=== PATIENT | female | born 1985 | race Caucasian/White ===

== ENCOUNTER 2022-01-03 03:06 | Observation (INO) | payer MEDICAID ==
[~2022-01-03] VITALS: Ht 157.5 cm; Wt 77.1 kg
[2022-01-03] MEDS ORDERED: PREN1TAB78 PO (03:54)
[2022-01-03] MEDS ORDERED: LACTATED RINGERS 1,000 ML IV SCH (04:00)
[2022-01-03] MEDS ORDERED: LACTATED RINGERS 1,000 ML IV ONE (04:00)
[2022-01-03 04:12] LABS: CLARITY URINE CLEAR (CLEAR); COLOR URINE YELLOW (YELLOW); KETONES URINE NEGATIVE (NEGATIVE); LEUKOCYTE ESTERASE URINE 2+ (NEGATIVE); NITRITE URINE POSITIVE (NEGATIVE); OCCULT BLOOD URINE 2+ (NEGATIVE); PH URINE 6.5 (4.5-8.0); PROTEIN URINE 2+ (NEGATIVE); SPECIFIC GRAVITY URINE 1.008 (1.005-1.030); UROBILINOGEN URINE 0.2 E.U./dL (0.2-1.0)
[2022-01-03] MEDS ORDERED: CEFAZOLIN 2,000 MG in DEXT 5% WATER 100 ML IV NR (05:00)
[2022-01-03] MEDS: TERBUTALINE SULFATE 1MG/ML VIAL SUBCUT PRN ×2 (05:29→05:49)
[2022-01-03] MEDS ORDERED: NITR-87 MT (06:56)
== END 2022-01-03 07:00 | disposition home or self-care (01) ==
LOC: 8 EST LDRP 03:06
PROVIDERS: ADMIT Specialist; ATTEND Specialist
DX: O26.893 Other specified pregnancy related conditions, third trimester (principal); R10.30 Lower abdominal pain, unspecified; R30.0 Dysuria; Z3A.27 27 weeks gestation of pregnancy
CPT/HCPCS: 59025; 81003; 82731; 87077; 87086; 87186; 96361; 96365; 96372; G0378; J0690; J3105; J7060; J7120; 96360; 99281

== ENCOUNTER 2023-05-04 09:10 | Emergency (ER) | payer MEDICAID ==
[~2023-05-04] VITALS: Ht 157.5 cm; Wt 70.3 kg
[~2023-05-04 09:10] MED LIST: NITR-87 MT; PREN1TAB78 PO
[2023-05-04 09:24] VITALS: O2SAT 99
[2023-05-04 09:40] LABS: BASOPHILS % 0.5 % (0.0-2.0); EOSINOPHILS % 2.1 % (0.0-5.0); HEMATOCRIT. 36.7 % (36.0-48.0); HEMOGLOBIN. 12.3 g/dL (12.0-16.0); LYMPHOCYTES % 40.6 % (20.0-50.0); MEAN CORPUSCULAR HEMOGLOBIN 28.2 pg (28.0-32.0); MEAN CORPUSCULAR HGB CONC 33.6 g/dL (31.0-37.0); MEAN CORPUSCULAR VOLUME 83.9 fL (81.0-99.0); MEAN PLATELET VOLUME 8.5 fl (7.4-10.4); MONOCYTES % 6.6 % (2.0-8.0); NEUTROPHILS % 50.2 % (40.0-76.0); PLATELET 292 x1000/uL (130-400); RED BLOOD CELL COUNT 4.37 mill/uL (4.2-5.4); WHITE BLOOD COUNT 8.6 x1000/uL (4.5-11.0)
[2023-05-04 09:55] LABS: ALANINE AMINOTRANSFERASE 22 IU/L (10-49); ALBUMIN 4.5 g/dL (3.2-4.8); ASPARTATE AMINOTRANSFERASE 23 IU/L (<34); BILIRUBIN TOTAL 0.9 mg/dL (0.1-1.0); CALCIUM 9.2 mg/dL (8.7-10.4); CARBON DIOXIDE 24 mEq/L (21-32); CHLORIDE 107 mEq/L (98-107); CREATININE 0.9 mg/dL (0.6-1.0); GLUCOSE 96 mg/dL (70-105); POTASSIUM 3.7 mEq/L (3.5-5.1); PROTEIN TOTAL 7.9 g/dL (6.0-8.3); SODIUM 140 mEq/L (136-145); UREA NITROGEN BLOOD 11 mg/dL (9-23)
[2023-05-04 11:58] LABS: CLARITY URINE CLEAR (CLEAR); COLOR URINE YELLOW (YELLOW); GLUCOSE URINE NEGATIVE (NEGATIVE); KETONES URINE NEGATIVE (NEGATIVE); LEUKOCYTE ESTERASE URINE TRACE (NEGATIVE); NITRITE URINE NEGATIVE (NEGATIVE); OCCULT BLOOD URINE 2+ (NEGATIVE); PH URINE 5.5 (4.5-8.0); PROTEIN URINE NEGATIVE (NEGATIVE); SPECIFIC GRAVITY URINE 1.023 (1.005-1.030)
[2023-05-04 13:14] LABS: BACTERIA URINE 1+; MUCUS URINE 1+ /lpf (< = 2+); SQUAMOUS EPITHELIAL CELL URINE FEW /lpf (RARE/1+)
[2023-05-04 13:15] LABS: RBC URINE 0-2 /hpf (0-2)
[2023-05-04] MEDS ORDERED: POLY17PO3 MT (13:26)
[2023-05-04] MEDS ORDERED: POLYETHYLENE GLYCOL 3350 (17GM) 1 DOSE PACK PO ONE (13:30)
[2023-05-04 14:31] VITALS: BP 120/77; PULSE 63; RESP 18; TEMP 98.7
== END 2023-05-04 14:43 | disposition home or self-care (01) ==
LOC: ER 09:10
DX: R10.9 Unspecified abdominal pain (principal); K59.00 Constipation, unspecified; E78.00 Pure hypercholesterolemia, unspecified
CPT/HCPCS: 80053; 81003; 81025; 83690; 85025; 36415; 74176; 99284; Z7610

== ENCOUNTER 2025-01-24 04:07 | Emergency (ER) | payer MEDICAID ==
[~2025-01-24] VITALS: Ht 157.5 cm; Wt 73.0 kg
[~2025-01-24 04:07] MED LIST changes: +POLY17PO3 MT
[2025-01-24 05:25] VITALS: O2SAT 100
[2025-01-24 10:53] LABS: BASOPHILS % 0.7 % (0.0-2.0); EOSINOPHILS % 2.6 % (0.0-5.0); HEMATOCRIT. 34.6 % (36.0-48.0); HEMOGLOBIN. 11.3 g/dL (12.0-16.0); LYMPHOCYTES % 45.2 % (20.0-50.0); MEAN PLATELET VOLUME 9.0 fl (7.4-10.4); MONOCYTES % 6.7 % (2.0-8.0); NEUTROPHILS % 44.8 % (40.0-76.0); PLATELET 258 x1000/uL (130-400); RED BLOOD CELL COUNT 4.11 mill/uL (4.2-5.4); RED CELL DISTRIBUTION WIDTH 14.5 % (11.6-14.6)
[2025-01-24 11:05] LABS: CREATININE 0.9 mg/dL (0.6-1.0); UREA NITROGEN BLOOD 7 mg/dL (9-23)
[2025-01-24 11:06] LABS: HCG SCREEN NEGATIVE
[2025-01-24 11:07] LABS: ASPARTATE AMINOTRANSFERASE 18 IU/L (<34)
[2025-01-24 11:08] LABS: BILIRUBIN DIRECT 0.2 mg/dL (<=3.0); BILIRUBIN TOTAL 0.9 mg/dL (0.1-1.0); PROTEIN TOTAL 7.5 g/dL (6.0-8.3)
[2025-01-24] MEDS ORDERED: CETI-89 MT (11:30)
[2025-01-24 11:42] VITALS: BP 135/92; PULSE 90; RESP 18; TEMP 36.9; O2SAT 100
== END 2025-01-24 11:45 | disposition home or self-care (01) ==
LOC: ER 04:07
DX: L29.9 Pruritus, unspecified (principal)
CPT/HCPCS: 36415; 80048; 80076; 84703; 85025; 99283